=== PATIENT | male | born 1965 | race Caucasian/White ===

== ENCOUNTER → 2021-01-27 16:02 | Outpatient (CLI) | payer OTHER, SELFPAY ==
[2021-01-27] MEDS: COVID-19 VACC, Ad26(JANSSEN)/PF 0.5 ML IM (16:51)
== END ==
PROVIDERS: Visit Provider Internal Medicine
DX: Z23 Encounter for immunization (principal)
CPT/HCPCS: 0031A; 91303

== ENCOUNTER → 2025-03-14 09:00 | Outpatient (CLI) | payer OTHER, SELFPAY ==
[2025-03-14 10:28] LABS: Add Manual Diff / Slide Review NO; Basophils Absolute Auto 0 /uL (0-100); Basophils Percent Auto 0.6 % (0-2); Eosinophils Absolute Auto 100 /uL (0-450); Eosinophils Percent Auto 1.8 % (2-4); Hematocrit 42.8 % (41-53); Hemoglobin 14.5 g/dL (13.5-17.5); Lymphocytes Absolute Auto 2200 /uL (1100-4500); Lymphocytes Percent Auto 34.9 % (25-40); Mean Corpuscular Hemoglobin 29.7 PG (26-34); Mean Corpuscular Volume 87.5 fL (80-100); Monocytes Absolute Auto 500 /uL (0-900); Monocytes Percent Auto 8.4 % (3-14); Neutrophils Absolute Auto 3300 /uL (1500-7000); Neutrophils Percent Auto 54.3 % (50-75); Platelet Count 241 X10^3/uL (150-400); Red Blood Cell Count 4.89 X10^6/uL (4.5-5.9); Red Cell Distribution Width 13.6 % (11.6-14.8); White Blood Cell Count 6.2 X10^3/uL (4.5-11.0)
[2025-03-14 10:51] LABS: Alanine Aminotransferase 15 IU/L (<50); Albumin 4.5 g/dL (3.5-5.0); Albumin Globulin Ratio 1.6 (1.0-2.8); Alkaline Phosphatase 56 U/L (38-126); Aspartate Aminotransferase 24 IU/L (17-59); BUN Creatinine Ratio 15.3 (6-22); Bilirubin Total 0.8 mg/dL (0.2-1.3); Blood Urea Nitrogen 15 mg/dL (9-20); Calcium 9.4 mg/dL (8.4-10.2); Carbon Dioxide 25 mmol/L (22-32); Cholesterol 251 mg/dL (140-199); Estimated Glomerular Filt Rate > 60 mL/min (>60); Globulin 2.8 g/dL (1.7-4.1); Glucose 107 mg/dL (70-99); HDL Cholesterol 65 mg/dL (40-60); HEMOLYSIS < 15 (0-50); LDL Cholesterol Calculated 171 mg/dL (<100); Potassium 4.8 mmol/L (3.4-5.1); Sodium 138 mmol/L (137-145); Total Protein 7.3 g/dL (6.3-8.2); Triglycerides 77 mg/dL (35-150)
[2025-03-14 11:19] LABS: TSH w/ Reflex to FT4 3.58 uIU/mL (0.47-4.68)
[2025-03-14 11:40] LABS: Creatinine Urine Random 121.85 mg/dL
[2025-03-14 11:44] LABS: Microalbumin Urine Random 1.1 mg/dL (0-1.6)
[2025-03-14 13:12] LABS: Chloride 106 mmol/L (98-107)
== END ==
LOC: LAB 09:02
PROVIDERS: PCP Family Medicine; Referring Provider Family Medicine; Visit Provider Family Medicine
DX: Z13.6 Encounter for screening for cardiovascular disorders (principal); I10 Essential (primary) hypertension; R51.9 Headache, unspecified; L65.9 Nonscarring hair loss, unspecified; Z87.442 Personal history of urinary calculi
CPT/HCPCS: 36415; 80053; 80061; 82043; 82570; 84443; 85025

== ENCOUNTER 2025-04-20 16:43 | Emergency (ER) | payer OTHER, SELFPAY ==
[2025-04-20] VITALS (16 sets, daily range): BP systolic 152–189; BP diastolic 97–116; PULSE 70–89; RESP 17; TEMP 36.4; O2SAT 95–98; BMI 29.9
--- NOTE | 2025-04-20 16:51 | DI.RAD.S_ITS ---
PROCEDURE: XR CHEST 1V INDICATIONS: Chest Pain TECHNIQUE: One view of the chest was acquired. COMPARISON: None. FINDINGS: Surgical changes and devices: None. Lungs and pleura: Lungs are clear. No pleural effusions or pneumothorax. Mediastinum: Mediastinal contours appear normal. Heart size is normal. Bones and chest wall: No suspicious bony lesions. Overlying soft tissues appear unremarkable. IMPRESSION: No acute cardiopulmonary abnormality is seen. Dictated by: Christos Seo M.D. on 04/20/2025 at 18:24 Approved by: Christos Seo M.D. on 04/20/2025 at 18:24
--- NOTE | 2025-04-20 16:58 | EKG_ITS ---
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
[2025-04-20 17:10] LABS: Add Manual Diff / Slide Review NO; Basophils Absolute Auto 100 /uL (0-100); Basophils Percent Auto 0.8 % (0-2); Eosinophils Absolute Auto 100 /uL (0-450); Hematocrit 42.6 % (41-53); Hemoglobin 14.2 g/dL (13.5-17.5); Lymphocytes Absolute Auto 2400 /uL (1100-4500); Lymphocytes Percent Auto 32.6 % (25-40); Mean Corpuscular HGB Conc 33.4 % (30-36); Mean Corpuscular Hemoglobin 29.2 PG (26-34); Mean Corpuscular Volume 87.3 fL (80-100); Monocytes Absolute Auto 600 /uL (0-900); Monocytes Percent Auto 7.5 % (3-14); Neutrophils Absolute Auto 4300 /uL (1500-7000); Neutrophils Percent Auto 58.1 % (50-75); Platelet Count 234 X10^3/uL (150-400); Red Blood Cell Count 4.87 X10^6/uL (4.5-5.9); Red Cell Distribution Width 13.8 % (11.6-14.8); White Blood Cell Count 7.4 X10^3/uL (4.5-11.0)
[2025-04-20 17:21] LABS: PTT Partial Thromboplastin Tim 37 SECONDS (25.1-36.5)
[2025-04-20 17:24] LABS: Alanine Aminotransferase 16 IU/L (<50); Albumin 4.3 g/dL (3.5-5.0); Albumin Globulin Ratio 1.3 (1.0-2.8); Alkaline Phosphatase 52 U/L (38-126); Aspartate Aminotransferase 26 IU/L (17-59); BUN Creatinine Ratio 16.8 (6-22); Bilirubin Total 0.7 mg/dL (0.2-1.3); Blood Urea Nitrogen 18 mg/dL (9-20); Calcium 9.1 mg/dL (8.4-10.2); Carbon Dioxide 26 mmol/L (22-32); Chloride 104 mmol/L (98-107); Creatine Kinase 100 U/L (55-170); Estimated Glomerular Filt Rate > 60 mL/min (>60); Globulin 3.2 g/dL (1.7-4.1); Glucose 114 mg/dL (70-99); HEMOLYSIS 22 (0-50); Lipase 88 U/L (23-300); Magnesium 1.9 mg/dL (1.6-2.3); Sodium 138 mmol/L (137-145); Total Protein 7.5 g/dL (6.3-8.2)
[2025-04-20 17:36] LABS: NT-proBNP (BNP-Adult 18+) 49 pg/mL (<125); Troponin I < 0.012 ng/mL (0.01-0.034)
--- NOTE | 2025-04-20 20:05 | PC.NURSE ---
pt states he has been having h/a and saw his pcp, was placed on BP medication today he was taking his bp and he continued to be elevated. he called his pcp who told his to come to the ED. pt denies any c/p or other problems states I didn't really want to come
[2025-04-20] MEDS: hydrALAZINE 20 MG/ML VIAL 5 MG IV (20:38)
[2025-04-20] MEDS: LOSARTAN 25 MG TABLET PO (20:43)
--- NOTE | 2025-04-20 23:24 | ED_ITS ---
HPI - General Adult General Chief complaint: Hypertension Stated complaint: BP is high, ref by Dr. Lara 180/124 Time Seen by Provider: 04/20/25 20:11 Source: patient Mode of arrival: Ambulatory History of Present Illness HPI narrative: 59-year-old male with history of hypertension recent diagnosis, taking losartan 25 mg daily, last week per phone consultation had elevated blood pressures, increased to 25 mg twice daily. Still has increased blood pressure readings today. Concerned about elevated home blood pressure readings. He did take pseudoephedrine decongestant weeks ago and had multiple rounds of antibiotics regarding sinus congestion sinus infection after right-sided dental upper tooth implant. Denies recent decongestant use. Denies fevers or chills. Denies chest pain, shortness of breath. Related Data Previous Rx's Medication Instructions Recorded cyclobenzaprine 5 mg tablet 5 mg PO BEDTIME #30 tabs 04/14/25 losartan 25 mg tablet 25 mg PO BID #30 tabs 04/14/25 rosuvastatin 10 mg tablet 10 mg PO DAILY #90 tabs 04/16/25 Allergies Allergy/AdvReac Type Severity Reaction Status Date / Time No Known Drug Allergies Allergy Verified 04/20/25 16:46 Patient History Social History (System 03/17/25 @ 09:45 by Yani Brandt) Smoking Status: Current every day smoker Smoking Status: Current every day smoker tobacco type: cigarettes Exam Narrative Exam Narrative: GENERAL: Well-developed patient, in mild distress. HEAD: Atraumatic. Normocephalic. EYES: Pupils equal round and reactive. Extraocular motions intact. No scleral icterus. No injection or drainage. ENT: Nose without bleeding, purulent drainage. Throat without erythema, tonsillar hypertrophy or exudate. Airway patent. NECK: Trachea midline. Non tender CARDIOVASCULAR: Regular rate and rhythm without murmurs, gallops, or rubs. RESPIRATORY: Clear to auscultation. Breath sounds equal bilaterally. No wheezes, rales, or rhonchi. GASTROINTESTINAL: Abdomen soft, non-tender, nondistended. EXTREMITIES: No edema or joint tenderness. BACK: Nontender without deformity or crepitance. No flank tenderness. NEURO: AOx3. Motor functions grossly nonfocal SKIN: No rash or erythema of visible areas Initial Vital Signs Initial Vital Signs: Vital Signs Temperature 97.5 F L 04/20/25 16:46 Pulse Rate 89 06/02/25 16:46 Respiratory Rate 17 04/20/25 16:46 Blood Pressure 186/113 H 04/20/25 16:46 Pulse Oximetry 98 04/20/25 16:46 Oxygen Delivery Method Room Air 04/20/25 16:46 Course Orders Ordered: ED Orders 04/20/25 16:51 XR chest 1V Stat EKG-12 Lead Stat 04/20/25 16:57 Complete Blood Count AUTO DIFF Stat Comprehensive Metabolic Panel Stat Lipase Stat Magnesium Stat NT-proBNP (BNP-Adult 18+) Stat PTT Partial Thromboplastin Sascha Stat Prothrombin Time INR Stat Troponin & CK Cardiac Panel Stat Discontinued Medications Aspirin (Aspirin 81 Mg Chew Tab) 324 mg PO NOW ONE Stop: 04/20/25 16:52 Last Admin: 04/20/25 21:16 Dose: Not Given Documented By: PHILL Hydralazine HCl (Hydralazine 20 Mg/Ml Vial) 5 mg IV NOW ONE Stop: 04/20/25 20:12 Last Admin: 04/20/25 20:38 Dose: 5 mg Documented By: PHILL Losartan Potassium (Losartan 25 Mg Tablet) 25 mg PO NOW ONE Stop: 04/20/25 20:12 Last Admin: 04/20/25 20:43 Dose: 25 mg Documented By: PHILL Vital Signs Vital signs: Vital Signs - 8 hr 04/20/25 19:59 04/20/25 20:00 04/20/25 20:00 Pulse Rate 79 80 Blood Pressure 184/116 H Pulse Oximetry 96 98 04/20/25 20:02 04/20/25 20:02 04/20/25 20:29 Pulse Rate 81 81 Blood Pressure 189/112 H Pulse Oximetry 98 96 04/20/25 20:30 04/20/25 20:30 04/20/25 20:38 Pulse Rate 80 Blood Pressure 181/109 H 181/109 H Pulse Oximetry 96 04/20/25 21:00 04/20/25 21:00 04/20/25 21:30 Pulse Rate 74 Blood Pressure 165/103 H 180/99 H Pulse Oximetry 96 04/20/25 21:30 04/20/25 22:00 04/20/25 22:00 Pulse Rate 71 70 Blood Pressure 166/100 H Pulse Oximetry 98 95 04/20/25 22:02 04/20/25 22:20 04/20/25 22:30 Pulse Rate 74 Blood Pressure 159/100 H 166/106 H Pulse Oximetry 98 04/20/25 23:00 04/20/25 23:30 04/20/25 23:36 Pulse Rate Blood Pressure 152/97 H 169/101 H 180/99 H Pulse Oximetry Medical Decision Making Lab Data Lab results reviewed: Yes I reviewed the patient's lab results. Lab results narrative: White blood cell count 7400, hemoglobin 14.2, platelets adequate. Glucose 114. Renal function normal. Serum CO2 normal. Electrolytes unremarkable. Liver functions and lipase normal. Troponin negative/unmeasurable. 04/20/25 16:57 04/20/25 16:57 Labs: Lab Results 04/20/25 Range/Units 16:57 WBC 7.4 (4.5-11.0) X10^3/uL RBC 4.87 (4.5-5.9) X10^6/uL Hgb 14.2 (13.5-17.5) g/dL Hct 42.6 (41-53) % MCV 87.3 (80-100) fL MCH 29.2 (26-34) PG MCHC 33.4 (30-36) % RDW 13.8 (11.6-14.8) % Plt Count 234 (150-400) X10^3/uL Neut % (Auto) 58.1 (50-75) % Lymph % (Auto) 32.6 (25-40) % [place] % (Auto) 7.5 (3-14) % Eos % (Auto) 1.0 L (2-4) % Baso % (Auto) 0.8 (0-2) % Neut # (Auto) 4300 (4690-9677) /uL Lymph # (Auto) 2400 (7762-9541) /uL [place] # (Auto) 600 (0-900) /uL Eos # (Auto) 100 (0-450) /uL Baso # (Auto) 100 (0-100) /uL PT 11.0 (9.4-12.5) SECONDS INR 1.0 (0.9-1.3) APTT 37 H (25.1-36.5) SECONDS Sodium 138 (137-145) mmol/L Potassium 4.0 (3.4-5.1) mmol/L Chloride 104 (98-107) mmol/L Carbon Dioxide 26 (22-32) mmol/L BUN 18 (9-20) mg/dL Creatinine 1.07 (0.66-1.25) mg/dL Estimated GFR > 60 (>60) mL/min BUN/Creatinine Ratio 16.8 (6-22) Glucose 114 H (70-99) mg/dL Calcium 9.1 (8.4-10.2) mg/dL Magnesium 1.9 (1.6-2.3) mg/dL Total Bilirubin 0.7 (0.2-1.3) mg/dL AST 26 (17-59) IU/L ALT 16 (<50) IU/L Alkaline Phosphatase 52 (38-126) U/L Total Creatine Kinase 100 (55-170) U/L Troponin I < 0.012 (0.01-0.034) ng/mL NT-Pro-B Natriuret Pep 49 (<125) pg/mL Total Protein 7.5 (6.3-8.2) g/dL Albumin 4.3 (3.5-5.0) g/dL Globulin 3.2 (1.7-4.1) g/dL Albumin/Globulin Ratio 1.3 (1.0-2.8) Lipase 88 (23-300) U/L Imaging Data Chest x-ray: Radiologist's Impression: [place] [address] XRay Report Signed Patient: CATHY Jasmine MR#: [id number] : 1965 Acct:[id number] Age/Sex: 59 / M Date of Service: 04/20/25 Loc: ED Accession Number: [id number] Procedure: XR chest 1V Ordering Provider: Mee Parish MD PROCEDURE: XR CHEST 1V INDICATIONS: Chest Pain TECHNIQUE: One view of the chest was acquired. COMPARISON: None. FINDINGS: Surgical changes and devices: None. Lungs and pleura: Lungs are clear. No pleural effusions or pneumothorax. Mediastinum: Mediastinal contours appear normal. Heart size is normal. Bones and chest wall: No suspicious bony lesions. Overlying soft tissues appear unremarkable. IMPRESSION: No acute cardiopulmonary abnormality is seen. Dictated by: Christos Seo M.D. on 04/20/2025 at 18:24 Approved by: Christos Seo M.D. on 04/20/2025 at 18:24 ECG Data Attestation: I personally reviewed and interpreted this ECG as follows: Interpretation: 1658, Normal sinus rhythm with a rate of 88, no obvious ST segment elevation or depression changes. AL 150, QRS 94, QTC 459. MDM Narrative Medical decision making narrative: 59-year-old male with history of hypertension recent diagnosis, taking losartan 25 mg daily, last week per phone consultation had elevated blood pressures, increased to 25 mg twice daily. Still has increased blood pressure readings today. Has had right-sided dental implant, and possible sinus infection, multiple rounds of antibiotics, awaiting dental follow up. He denies recent dose of pseudoephedrine decongestant medication, although he had tried this a few weeks ago, not recent days. Blood pressure elevations noted. Quite high in the emergency department. IV hydralazine given, an additional dose of oral losartan also given. Blood pressure seemed improved. Screening labs and EKG and chest x-ray studies were unremarkable. Advised for now to try increased dose of losartan 25 mg 2 tablets by mouth in the morning and 2 tablets by mouth in the evening. Has supply. Touch base with your regular doctor this next week to see if additional classes of other anti hypertension might be needed for adequate blood pressure control. Advised to follow up with his dentist and/or oral surgeon regarding your dental implant. Return precautions discussed. Discharged home with family. Discharge Plan Departure Patient Disposition: Home Clinical Impression: Hypertension Activity Restrictions/Additional Instructions: Elevated blood pressure, most recently having started losartan 25 mg daily that was increased to twice daily. Pressure was quite elevated, IV hydralazine given, with additional dose of losartan. Eventual improvement in blood pressure. Screening labs/studies unremarkable. Advise increased dose of losartan 25 mg 2 tablets twice daily for now, you stated that you had a supply. Recheck your blood pressure later this week early next week with your regular doctor, you might need a 2nd class of blood pressure control agent eventually. Recheck earlier to this/nearest emergency department for any change worsening symptoms or any concerns prior. Prescriptions: No Action losartan 25 mg tablet 25 mg PO BID Qty: 30 3RF cyclobenzaprine 5 mg tablet 5 mg PO BEDTIME Qty: 30 1RF rosuvastatin 10 mg tablet 10 mg PO DAILY Qty: 90 3RF Referrals: Ramona Lara MD [Primary Care Provider] - Stand Alone Forms: Patient Portal/API/Survey
== END 2025-04-20 23:56 | disposition home or self-care (01) ==
PROVIDERS: Student in an Organized Health Care Education/Training Program; Emergency Provider Emergency Medicine; PCP Family Medicine
DX: I10 Essential (primary) hypertension (principal); R07.9 Chest pain, unspecified
CPT/HCPCS: 36415; 71045; 80053; 82550; 83690; 83735; 83880; 84484; 85025; 85610; 85730; 93005; 99284; J0360